=== PATIENT | male | born 1950 | race Caucasian/White ===

== ENCOUNTER 2020-08-21 14:56 | Emergency (ER) | payer SELFPAY ==
[~2020-08-21] VITALS: Ht 182.9 cm; Wt 71.2 kg
[2020-08-21 15:01] VITALS: BP 166/104
[2020-08-21] MEDS ORDERED: LIDOCAINE-MPF 1%, 5ML INFIL ONE (15:30)
--- NOTE | 2020-08-21 15:58 | NUR ---
ACCOUNT SERVICES SPECIALIST: PT AMBULATORY TO ROOM WITH STEADY GAIT AT THIS TIME FROM LOBBY WITH MACHINE LEARNING INTERN TINA.
[2020-08-21] MEDS ORDERED: LIDOCAINE-MPF 1%, 5ML ONE (16:03)
[2020-08-21] MEDS ORDERED: SULFAMETH./TRIMETHOPRIM DS 800MG/160MG TABLET PO ONE (16:30)
[2020-08-21] MEDS ORDERED: CEPHALEXIN 500 MG CAPSULE PO ONE (16:30)
[2020-08-21] MEDS ORDERED: CEPHALEXIN 500 MG CAPSULE ONE (16:40)
[2020-08-21] MEDS ORDERED: SULFAMETH./TRIMETHOPRIM DS 800MG/160MG TABLET ONE (16:40)
--- NOTE | 2020-08-21 17:06 | NUR ---
meds per mar awaiting dc papers. as
== END 2020-08-21 17:24 | disposition home or self-care (01) ==
LOC: ED 15:00
DX: L02.416 Cutaneous abscess of left lower limb (principal); L02.415 Cutaneous abscess of right lower limb; L03.115 Cellulitis of right lower limb; F17.210 Nicotine dependence, cigarettes, uncomplicated; J44.9 Chronic obstructive pulmonary disease, unspecified
CPT/HCPCS: 99283; 99406

== ENCOUNTER 2020-12-12 22:25 | Emergency (ER) | payer SELFPAY ==
[~2020-12-12] VITALS: Ht 182.9 cm; Wt 71.5 kg
[2020-12-12 22:38] VITALS: BP 172/140
[2020-12-12] MEDS ORDERED: DIPHENHYDRAMINE 25 MG CAPSULE PO ONE (23:00)
[2020-12-12] MEDS ORDERED: PERMETHRIN CRM 5%, 60GM TP SCH (23:00)
[2020-12-12] MEDS ORDERED: DIPHENHYDRAMINE 25 MG CAPSULE ONE (23:12)
== END 2020-12-12 23:34 ==
LOC: ED 23:32
DX: B86 Scabies (principal); F17.210 Nicotine dependence, cigarettes, uncomplicated; Z72.9 Problem related to lifestyle, unspecified; I10 Essential (primary) hypertension; Z91.14 Patient's other noncompliance with medication regimen
CPT/HCPCS: 99283; 99406; Q0163